=== PATIENT | male | born 1950 | race Caucasian/White ===

== ENCOUNTER 2020-04-15 16:39 | Emergency (ER) | payer MEDICARE ==
[2020-04-15 18:16] LABS: INR 1.05 (0.9-1.2); PTT 29.2 SECONDS (22.2-34.7)
[2020-04-15 18:17] LABS: D-DIMER 3.27 ug/mLFEU (0.00-0.41)
[2020-04-15 18:19] LABS: BASOPHIL 0.8 % (0-2); EOSINOPHIL 0 % (0-7); HCT 46.1 % (42.0-52.0); HGB 15.9 g/dl (13.2-18.0); LYMPHOCYTE 7.5 % (15-48); MCH 28.6 pg (25.0-31.0); MCHC 34.5 g/dL (32.0-36.0); MCV 82.9 fL (78.0-100.0); MONOCYTE 13.5 % (0-12); MPV 9.5 fL (6.0-9.5); NEUTROPHIL 74.7 % (41-80); NRBC 0; PLT 198 K/uL (150-400); RBC 5.56 M/uL (4.70-6.00); RDW 13.4 % (11.5-14.0); WBC 11.4 K/uL (4.0-10.5)
[2020-04-15 18:34] LABS: PRO-BNP 220 pg/mL (<125)
[2020-04-15 18:47] LABS: LACTIC ACID 0.8 mmol/L (0.4-1.9)
[2020-04-15 18:57] LABS: ALBUMIN 3.1 g/dL (3.4-5.0); BILIRUBIN - TOTAL 0.6 mg/dL (0.2-1.0); BUN/CREAT RATIO (CALC) 22.3 RATIO; C-REACTIVE PROTEIN 6.6 mg/dL (<=0.90); CREATININE 0.94 mg/dL (0.67-1.17); GLOBULIN (CALCULATION) 3.6 g/dL; MAGNESIUM 2.1 mg/dL (1.8-2.4); POTASSIUM 3.9 mmol/L (3.5-5.1); TOTAL PROTEIN 6.7 g/dL (6.4-8.2)
== END 2020-04-15 22:23 | disposition other institution (70) ==
LOC: FER 16:39
PROVIDERS: Emergency Medicine
DX: U07.1 COVID-19 (principal); J96.01 Acute respiratory failure with hypoxia
CPT/HCPCS: 36415; 36600; 71275; 80053; 82728; 82803; 83605; 83615; 83735; 83880; 84145; 84484; 85025; 85379; 85610; 85730; 86140; 87040; 93005; J1100; Q9967